=== PATIENT | male | born 1975 | race American Indian/Alaskan Native ===

== ENCOUNTER 2017-07-28 19:38 | Emergency (ER) | payer MEDICARE ==
[2017-07-28 20:36] VITALS: BP 135/86
== END 2017-07-28 21:00 | disposition left against medical advice (07) ==
LOC: EDSEX 19:38 → ED 19:38
DX: M79.605 Pain in left leg (principal); Z53.21 Procedure and treatment not carried out due to patient leaving prior to being seen by health care provider